=== PATIENT | male | born 1995 ===

== ENCOUNTER 2017-11-03 23:14 | Emergency (ER) | payer SELFPAY ==
[~2017-11-03] VITALS: Ht 172.7 cm; Wt 75.0 kg
[2017-11-04 00:17] VITALS: BP 118/64
== END 2017-11-04 03:00 | disposition left against medical advice (07) ==
LOC: EMS 23:15
DX: M25.572 Pain in left ankle and joints of left foot (principal); Z53.21 Procedure and treatment not carried out due to patient leaving prior to being seen by health care provider
CPT/HCPCS: 99281